=== PATIENT | male | born 1970 | race African-American/Black ===

== ENCOUNTER 2024-04-16 08:36 | Observation (INO) ==
[2024-04-16] MEDS: Ondansetron 4 mg VIAL 2 MG/ML 2 ml VIAL IV ONE (09:02)
[2024-04-16] MEDS: Morphine 4 MG/ML VIAL (1 ml) IV ONE ×2 (09:02→12:10)
[2024-04-16] MEDS: NS 0.9% 1000 ml BAG 1,000 ML IV ONE (09:02)
[2024-04-16 09:14] LABS: ABS Basophils 0.1 10^3/uL (0.0-0.1); ABS Eosinophils 0.1 10^3/uL (0.0-0.5); ABS Neutrophils 11.1 10^3/uL (1.5-7.6); Eosinophil % 0.7 %; Hemoglobin 12.9 g/dL (13.2-16.3); Lymphocyte % 7.6 %; Mean Corpuscular Hgb Conc 33.1 g/dL (31-36); Mean Corpuscular Volume 81.7 fL (80-97); Mean Platelet Volume 7.2 fL (7.5-11.2); Platelet Count 397 10^3/uL (150-450); Red Blood Count 4.78 10^6/uL (4.06-5.63); Red Cell Distribution Width 14.6 % (12-17); White Blood Count 13.3 10^3/uL (3.6-10.2)
[2024-04-16 09:55] LABS: Albumin 3.9 g/dL (3.2-5.2); Albumin/Globulin Ratio 1.8 (1-3); C Reactive Protein 92.68 mg/L (<8.01); Calcium 8.6 mg/dL (8.6-10.3); Creatinine, Serum 0.84 mg/dL (0.67-1.17); Globulin 2.2 g/dL (2-4); Magnesium 2.1 mg/dL (1.9-2.7); Potassium 4.5 mmol/L (3.5-5.0); Total Bilirubin 0.6 mg/dL (0.2-1.0); Total Protein 6.1 g/dL (6.4-8.9); eGFR CKD-EPI 102.3 (>60)
[2024-04-16] MEDS: Iohexol 350 (CONTRAST) 500 ML MDV IV ONE (10:39)
[2024-04-16] MEDS: Ciprofloxacin 400mg IVPREMIX 400 MG/200 ML BAG IVPB ONE (11:28)
[2024-04-16] MEDS: metroNIDAZOLE IV 500 MG/100ML 500 MG/100 ML BAG IVPB ONE (11:29)
[2024-04-16] MEDS ORDERED: Ondansetron 4 mg VIAL 2 MG/ML 2 ml VIAL IV PRN (11:34)
[2024-04-16] MEDS: NS 0.9% 1000 ml BAG 1,000 ML IV SCH (12:05)
[2024-04-16] MEDS ORDERED: Acetaminophen IV 1 GM/100ML 1,000 MG/100 ML BAG IV PRN (12:47)
[2024-04-16] MEDS ORDERED: Ciprofloxacin 400mg IVPREMIX 400 MG/200 ML BAG IVPB SCH (13:00)
[2024-04-16] MEDS: metroNIDAZOLE IV 500 MG/100ML 500 MG/100 ML BAG IVPB SCH (19:55)
[2024-04-16] MEDS: Heparin 5000 UNITS/ML 1 mL VIAL SUBCUT SCH (21:07)
[2024-04-16] MEDS: Ciprofloxacin 400mg IVPREMIX 400 MG/200 ML BAG IVPB SCH (22:53)
[2024-04-16] MEDS: CMC: FluvoxaMINE 50 mg TAB (NF) PO SCH (22:54)
[2024-04-17 06:23] LABS: ABS Basophils 0.1 10^3/uL (0.0-0.1); ABS Eosinophils 0.2 10^3/uL (0.0-0.5); ABS Monocytes 0.7 10^3/uL (0.0-1.1); ABS Neutrophils 8.8 10^3/uL (1.5-7.6); Eosinophil % 1.8 %; Hematocrit 34.6 % (38-53); Hemoglobin 11.5 g/dL (13.2-16.3); Lymphocyte % 9.5 %; Mean Corpuscular Hemoglobin 27.1 pg (27-33); Mean Corpuscular Hgb Conc 33.3 g/dL (31-36); Mean Corpuscular Volume 81.5 fL (80-97); Mean Platelet Volume 7.3 fL (7.5-11.2); Platelet Count 361 10^3/uL (150-450); Red Blood Count 4.25 10^6/uL (4.06-5.63); Red Cell Distribution Width 14.6 % (12-17); White Blood Count 10.8 10^3/uL (3.6-10.2)
[2024-04-17 06:56] LABS: Calcium 8.2 mg/dL (8.6-10.3); Creatinine, Serum 0.83 mg/dL (0.67-1.17); Magnesium 2.1 mg/dL (1.9-2.7); Potassium 4.3 mmol/L (3.5-5.0); eGFR CKD-EPI 102.7 (>60)
[2024-04-17 09:57] VITALS: BP 104/73
== END 2024-04-17 14:25 | disposition home or self-care (01) ==
LOC: ED 08:36 → EDHOLD 08:36 → SSU 19:53
PROVIDERS: ADMIT Hospitalist; ATTEND Hospitalist